=== PATIENT | female | born 1980 | race Hispanic/Latino ===

== ENCOUNTER 2019-09-28 08:22 | Outpatient (CLI) | payer OTHER ==
--- NOTE | 2019-09-28 10:40 | ULT ---
RIGHT UPPER QUADRANT ULTRASOUND: HISTORY: Abnormal LFTs. Transaminase is elevated. FINDINGS: This patient is status post cholecystectomy. The common duct measures 3 mm in diameter. The liver, right kidney, and pancreas appear normal. No free fluid is seen. IMPRESSION: Status post cholecystectomy; otherwise, unremarkable exam. POS: [facility]
== END 2019-09-28 08:23 | disposition home or self-care (01) ==
LOC: BICULT 08:22
PROVIDERS: ATTEND Family Medicine
DX: R74.0 Nonspecific elevation of levels of transaminase and lactic acid dehydrogenase [LDH] (principal); Z90.49 Acquired absence of other specified parts of digestive tract
CPT/HCPCS: 76705